=== PATIENT | male | born 1950 ===

== ENCOUNTER 2020-10-26 11:02 | Emergency (ER) | payer MEDICARE ==
[~2020-10-26] VITALS: Ht 175.3 cm; Wt 82.2 kg
[2020-10-26 11:03] VITALS: BP 141/79
[2020-10-26] MEDS ORDERED: HYDR12.55 (11:10)
[2020-10-26] MEDS ORDERED: LISI20TA33 (11:10)
[2020-10-26] MEDS ORDERED: ASPI81CH33 PO (11:10)
[2020-10-26] MEDS ORDERED: EPINEPHrine INJ 1 MG/ML 1ML AMP IM PRN (13:55)
[2020-10-26] MEDS ORDERED: diphenhydrAMINE 50MG/ML VIAL (J1200) IV PRN (13:55)
[2020-10-26] MEDS ORDERED: BAMLANIVIMAB 700 MG, ETESEVIMAB 1,400 MG in NS 250 ML IV ONE (13:55)
[2020-10-26] MEDS ORDERED: ALBUTEROL SULFATE 2.5 MG/0.5 ML INH NEB SOLN INH PRN (13:55)
[2020-10-26] MEDS ORDERED: ALBUTEROL 90 MCG/ACT 8GM HFA INHALER INH PRN (13:55)
[2020-10-26] MEDS ORDERED: NS 1,000 ML IV SCH (13:55)
[2020-10-26] MEDS ORDERED: methylPREDNISolone 125MG 2ML VIAL IV PRN (13:55)
--- NOTE | 2020-10-26 14:02 | IPNPDOC ---
Text Note Date of Service The patient was seen on 10/26/20. NOTE Patient is 70 years old male with past medical history of hypertension, hyperlipidemia, coronary artery diseases presented hospital with generalized weakness, muscle ache. Patient was tested positive for COVID 19. Physical exam pertinent for diminished lung sounds bilaterally. Patient agreed to receive monoclonal antibiotic infusion. VS,Fishbone, I+O VS, Fishbone, I+O Vital Signs Date Time Temp Pulse Resp B/P (MAP) Pulse Ox O2 Delivery O2 Flow Rate FiO2 10/26/20 12:26 85 98 10/26/20 12:15 Room Air 10/26/20 11:07 10/26/20 11:03 98.1 18 ANDERSON ESPARZA DO Oct 26, 2020 14:02
== END 2020-10-26 14:30 | disposition home or self-care (01) ==
LOC: M ED 11:02
DX: U07.1 COVID-19 (principal); I10 Essential (primary) hypertension; Z79.899 Other long term (current) drug therapy; Z79.82 Long term (current) use of aspirin
CPT/HCPCS: 96365; 99284; M0239